=== PATIENT | female | born 1960 | race Asian ===

== ENCOUNTER 2017-01-02 14:57 | Outpatient (CLI) | payer OTHER | END 2017-01-02 14:58 | disposition home or self-care (01) | DX: G47.33 Obstructive sleep apnea (adult) (pediatric) (principal) ==

== ENCOUNTER 2017-12-17 14:03 | Outpatient (CLI) | payer OTHER | END 2017-12-17 14:04 | disposition home or self-care (01) | LOC: SC 14:03 | PROVIDERS: ATTEND Internal Medicine Pulmonary Disease | DX: G47.33 Obstructive sleep apnea (adult) (pediatric) (principal) | CPT/HCPCS: 99212; 99213 ==

== ENCOUNTER 2019-01-21 10:57 | Outpatient (CLI) | payer OTHER | END 2019-01-21 10:58 | disposition home or self-care (01) | LOC: SC 10:57 | PROVIDERS: ATTEND Nurse Practitioner Family | DX: G47.33 Obstructive sleep apnea (adult) (pediatric) (principal) | CPT/HCPCS: 99212; 99214 ==

== ENCOUNTER 2019-04-08 11:03 | Outpatient (CLI) | payer OTHER | END 2019-04-08 11:04 | disposition home or self-care (01) | LOC: SC 11:03 | PROVIDERS: ATTEND Nurse Practitioner Family | DX: G47.33 Obstructive sleep apnea (adult) (pediatric) (principal) | CPT/HCPCS: 99212; 99214 ==

== ENCOUNTER 2019-11-18 12:46 | Outpatient (CLI) | payer OTHER ==
[2019-11-18 13:38] VITALS: BP 123/72
--- NOTE | 2019-11-18 13:38 | SLEEP CARE CONSULTATION ---
Information from patient questionnaire entered by Ximena Coyne. I have reviewed and concur with the information entered by Ximena Coyne. This document represents the service I personally performed and the decisions made by me, Monica Rubi, RN, MSN, [employer] TECHNICIAN. History of Present Illness Previous diagnosis: Mild, Obstructive Sleep Apnea-Hypopnea Syndrome AHI: 7.2 Reason for follow up: six month Equipment type: CPAP Equipment obtained from: [facility] Mask style: Nasal (Dreamwear) Mask brand: Respironics Backup mask available: Yes (old mask ) Last cushion change: a month ago HPI additional information: the chinstrap use reduced mask leaks. CPAP Compliance Data - Data Reviewed with Patient Average duration of nightly device use: 6.95 Compliance rate %: 96.1 (180 days) Current pressure setting (cmH2O): 12 Humidity settin Heated hose settin Average residual AHI: 3.2 Average large leak: 3 min 55 sec Subjective Patient concerns: reports: mask leak noise (when sleeps on side), dry mouth, nose, throat (mild dry mouth intermittently ), other (mask disloding in sleep about every other day. ). denies: aerophagia, mask discomfort, air blowing in eyes, condensation in mask/hose, nasal congestion, epistaxis Observed to snore while using device: No Current pressure setting perceived as: comfortable On therapy, patient: reports: sleeping better, awakening more refreshed, being more awake and alert during the day, more rested overall. denies: drowsiness while driving Initial [place] Sleepiness Scale score: 15 Allergies and Home Medications Home medication list reviewed: Yes (stopped meloxicam and insulin reduced to morning only ) Review of Systems Review of systems same as previous: No (right total knee in May ) Physical Exam Blood Pressure: 123/72 Cuff size: wrist Heart Rate: 84 O2 Saturation: 99 Height: 4 ft 11 in Weight: 139 lb 9.6 oz Weight change since last visit: lost 6 pounds Body Mass Index: 28.2 BMI Classification: Overweight Impression and Plan 1. Obstructive Sleep Apnea-Hypopnea Syndrome, mild , with good treatment compliance and good apnea control. On CPAP therapy, the patient has better sleep quality and is more rested overall. Mask leaks predominately from when patient sleeps on their side can be reduced by using a CPAP pillow. A CPAP pillow sample was shown. This and other styles can be purchased online. I will also order a headgear with arms for her mask to reduce dislodging in sleep. Oral dryness can be reduced by adjusting humidity setting higher or heated hose lower or by adjusting both settings. Printed instructions given on how to change humidity and heated hose settings with rationale explaining why to change. Oral dryness can also be reduced by reducing mask leaks. Patient advised that chronic oral dryness can affect dental health and advised to follow up with dentist. In addition, there are oral dryness products that can be used to reduce dryness such as Biotene products, Dry mouth rinse and Xylomelts. Patient is currently using Biotene as needed. Patient's apnea severity and rationale for treatment to reduce apnea, improve sleep quality and reduce cardiovascular and cerebrovascular events was reviewed. I also reviewed the benefit of consistent device use of CPAP for hypertension, diabetes. Patient spouse is retiring and may move but patient wants to continue with follow up here if possible. * Continue CPAP pressure at 12 cmH2O * Implement methods to reduce oral dryness. * Notify me if snoring with mask or feeling that the pressure is too much or too little * Attempt to lose weight * Call this office if any problems using CPAP * Return for follow up in 1 year, or sooner if concerns arise * If moves contact this office to clarify process. Time Spent with Patient (minutes): 30 I spent 100% of this visit face to face with the patient with greater than 50% of this was spent time counseling the patient and coordination of care.
== END 2019-11-18 12:47 | disposition home or self-care (01) ==
LOC: SC 12:46
PROVIDERS: ATTEND Nurse Practitioner Family
DX: G47.33 Obstructive sleep apnea (adult) (pediatric) (principal); E66.3 Overweight; Z68.28 Body mass index [BMI] 28.0-28.9, adult
CPT/HCPCS: 99212; 99214

== ENCOUNTER 2020-08-19 14:51 | Outpatient (CLI) | payer OTHER ==
--- NOTE | 2020-08-25 09:05 | Mammography Report ---
BILATERAL DIGITAL SCREENING MAMMOGRAM 3D/2D: 08/19/2020 CLINICAL: Routine screening. Comparison is made to exams dated: 05/04/2015 mammogram - [facility], 12/01/2018 [facility], and 12/11/2017 mammogram - [facility]. The tissue of both breasts is heterogen eously dense. This may lower the sensitivity of mammography. No significant masses, calcifications, or other findings are seen in either breast. There has been no significant interval change. IMPRESSION: NEGATIVE There is no mammographic evidence of malignancy. A 1 year screening mammogram is recommended. This exam was interpreted at Station ID: [id number]. NOTE: For mammograms, a report in lay terms will be sent to the patient. Approximately 15% of breast malignancies will not be visualized mammographically. In the management of a palpable breast mass, a negative mammogram must not discourage biopsy of a clinically suspicious lesion. Electronically Signed By: Heather petersen/slim:08/24/2020 17:06:12 ACR BI-RADS Category 1: Negative 3341F PARENCHYMAL PATTERN: (D) - The breast(s) demonstrate(s) heterogeneously dense fibroglandular priyanka gonzalez. BI-RADS CATEGORY: (1) - 1 RECOMMENDATION: (ANNUAL) - Recommend routine annual screening mammography. [id number] 1 year screening LATERALITY: (B)
== END 2020-08-19 14:52 | disposition home or self-care (01) ==
LOC: DI.N 14:51
PROVIDERS: ATTEND Internal Medicine
DX: Z12.31 Encounter for screening mammogram for malignant neoplasm of breast (principal)
CPT/HCPCS: 77067

== ENCOUNTER 2020-09-23 07:00 | Outpatient (CLI) | payer OTHER | END 2020-09-23 23:59 | disposition home or self-care (01) | LOC: COV 07:00 | PROVIDERS: ATTEND Ophthalmology | DX: Z01.812 Encounter for preprocedural laboratory examination (principal); H25.812 Combined forms of age-related cataract, left eye; E11.9 Type 2 diabetes mellitus without complications; Z79.4 Long term (current) use of insulin; Z20.822 Contact with and (suspected) exposure to COVID-19 ==

== ENCOUNTER 2020-09-29 06:15 | Day surgery (SDC) | payer OTHER ==
[2020-09-29] MEDS ORDERED: LACTATED RINGERS 500 ML IV ONE ×2 (06:27→08:06)
[2020-09-29] MEDS ORDERED: PROPARACAINE 0.5% OPHTH DROPS 15 ML ONE (06:27)
[2020-09-29] MEDS ORDERED: PHENYLEPHRINE 2.5% OPHTH 2 ML DROPS ONE (06:27)
[2020-09-29] MEDS ORDERED: KETOROLAC 0.45% OPHTH DROPS ONE (06:27)
--- NOTE | 2020-09-29 07:14 | ANESTHESIA ---
Pre-Anesthesia VS, & Labs - Diagnosis L senile combined cataract - Procedure L extraction cataract w/IOL Vital Signs: Temp Pulse Resp BP Pulse Ox 36.9 C 80 16 167/81 H 98 09/29/20 06:31 09/29/20 06:31 09/29/20 06:31 09/29/20 06:31 09/29/20 06:31 Height: 4 ft 11 in Weight (kg): 62 kg Body Mass Index: 27.6 BMI Classification: Overweight - NPO >8 hours - Is Patient ?: No - Lab Results Current Lab Results: Laboratory Tests 09/29/20 06:44: POC Whole Bld Glucose 103 H Lab results reviewed: Yes Home Medications and Allergies Home Medications: Ambulatory Orders Albuterol Sulf [Ventolin Hfa Inhaler] 1 - 2 puffs INH Q4HR PRN 09/28/20 Aspirin [Aspirin EC] 81 mg PO DAILY 09/28/20 Atorvastatin Calcium [Lipitor] 80 mg PO DAILY 09/28/20 Cholecalciferol (Vitamin D3) [Vitamin D3] 25 mcg PO DAILY 09/28/20 Insulin Glargine [Lantus Solostar] 10 unit SQ DAILY 09/28/20 Loratadine [Claritin] 10 mg PO DAILY PRN 09/28/20 Telmisartan/Hydrochlorothiazid [Micardis Hct 80-25 mg Tablet] 1 each PO DAILY 09/28/20 metFORMIN [Glucophage] 1,000 mg PO BIDWM 09/28/20 Dulaglutide [Trulicity] 0.75 mg SQ ONCE 09/29/20 Albuterol Sulf [Ventolin Hfa Inhaler] 1 - 2 puffs INH Q4HR PRN 09/28/20 Aspirin [Aspirin EC] 81 mg PO DAILY 09/28/20 Atorvastatin Calcium [Lipitor] 80 mg PO DAILY 09/28/20 Cholecalciferol (Vitamin D3) [Vitamin D3] 25 mcg PO DAILY 09/28/20 Insulin Glargine [Lantus Solostar] 10 unit SQ DAILY 09/28/20 Loratadine [Claritin] 10 mg PO DAILY PRN 09/28/20 Telmisartan/Hydrochlorothiazid [Micardis Hct 80-25 mg Tablet] 1 each PO DAILY 09/28/20 metFORMIN [Glucophage] 1,000 mg PO BIDWM 09/28/20 Dulaglutide [Trulicity] 0.75 mg SQ ONCE 09/29/20 Allergies/Adverse Reactions: Allergies Allergy/AdvReac Type Severity Reaction Status Date / Time latex Allergy Itching Verified 09/28/20 14:19 meperidine [From Demerol] Allergy Anxiety Verified 09/28/20 14:19 Anes History & Medical History - Anesthetic History Anesthesia Complications: reports: No previous complications Family history of Anesthesia Complications: Denies Family history of Malignant Hyperthermia: Denies - Medical History Cardiovascular: reports: Hypertension, High cholesterol Pulmonary: reports: Asthma, Sleep apnea, CPAP use Urinary: reports: None Musculoskeletal: reports: Osteoarthritis Endocrine/Autoimmune: reports: Type 2 diabetes Psychosocial: reports: No issues indicated History of Cancer?: No - Surgical History Urologic: Bladder surgery Gynecologic: Tubal ligation Orthopedic: Knee replacement Exam General: Alert, Oriented x3, Cooperative Dental: WNL Mouth Opening: Greater than 4 Fingerbreadths Neck Mobility: Normal Mallampati classification: II Thyromental Distance: 4-6 cm Respiratory: Lungs clear, Normal breath sounds, No respiratory distress Cardiovascular: Regular rate Neurological: Normal speech Mental/Cognitive Status: Alert/Oriented X3, Normal for patient Cognitive Status: Within normal limits Plan Anesthesia Type: MAC Consent for Procedure(s) Verified and Reviewed: Yes Code Status: Attempt Resuscitation ASA classification: 2-Mild systemic disease Is this case an emergency?: No
[2020-09-29] MEDS ORDERED: MIDAZOLAM 2 MG/2 ML VIAL ONE (07:17)
[2020-09-29] MEDS ORDERED: EPINEPHrine 1 MG/ML AMP IR ONE (07:41)
[2020-09-29] MEDS ORDERED: BRIMONIDINE 0.2% OPHTH DROPS 5 ML OPTH ONE (07:41)
[2020-09-29] MEDS ORDERED: CHONDR SULF/HYALURONATE SYRINGE IO ONE (07:41)
[2020-09-29] MEDS ORDERED: TRIAMCIN/MOXIFLOX OPHTHALMIC 0.6 ML VIAL IO ONE ×2 (07:42→08:36)
[2020-09-29] MEDS ORDERED: BSS/LIDOCAINE/EPINEPHRINE 1 ML SYRINGE IO ONE (07:42)
[2020-09-29] MEDS ORDERED: TIMOLOL 0.5% OPHTH DROPS OPTH ONE (07:42)
[2020-09-29] MEDS ORDERED: PROPARACAINE 0.5% OPHTH DROPS 15 ML EACHEYE ONE (07:42)
[2020-09-29] MEDS ORDERED: VANCOMYCIN OPHTHALMI 8MG/0.8ML 8 MG/0.8 ML SYRINGE IO ONE ×2 (07:43→08:37)
[2020-09-29 08:21] VITALS: BP 132/64
[2020-09-29] MEDS ORDERED: KETOROLAC 15 MG/ML VIAL ONE (08:27)
[2020-09-29] MEDS ORDERED: EPINEPHrine 1 MG/ML AMP ONE (08:36)
[2020-09-29] MEDS ORDERED: BSS/LIDOCAINE/EPINEPHRINE 1 ML SYRINGE ONE (08:37)
[2020-09-29] MEDS ORDERED: TIMOLOL 0.5% OPHTH DROPS ONE (08:37)
[2020-09-29] MEDS ORDERED: BRIMONIDINE 0.2% OPHTH DROPS 5 ML ONE (08:37)
--- NOTE | 2020-09-29 09:24 | ANESTHESIA POST OP EVALUATION ---
Anesthesia Post Eval - Post Anesthesia Eval Vitals: Last Vital Signs Temp 36.3 C L 09/29/20 08:20 Pulse 70 09/29/20 08:20 Resp 22 09/29/20 08:20 BP 132/64 H 09/29/20 08:20 Pulse Ox 96 09/29/20 08:20 CV Function Including HR & BP: positive: Stable Pain Control: positive: Satisfactory Nausea & Vomiting: positive: Negative Mental Status: positive: Baseline Respiratory Status: Airway Patent Hydration Status: Satisfactory Anesthesia Complications: positive: None
--- NOTE | 2020-09-29 10:05 | OPERATIVE REPORT ---
DATE OF SERVICE: 09/29/2020 Physician: Florentino Kennedy MD PREOPERATIVE DIAGNOSIS: Visually significant cataract, left eye. This was her first cataract surger y. POSTOPERATIVE DIAGNOSIS: Visually significant cataract, left eye. This was her first cataract surge ry. PROCEDURE: Phacoemulsification with posterior chamber intraocular lens implant, left eye. SURGEON: Florentino Kennedy MD ANESTHESIA: Monitored anesthesia care. COMPLICATIONS: None. OPERATIVE INDICATIONS: This is a 60-year-old woman with progressive vision loss in the left eye due to a 2-3+ nuclear sclerotic, 2+ cortical, and 3+ posterior subcapsular cataract. Best corrected visu al acuity was 20/100, with glare to hand motion vision in the left eye. Indications for surgery are overall decrease in vision, difficulty seeing words on a computer screen, difficulty reading, difficu lty seeing words, closed caption or game scores on TV, difficulty seeing street signs, difficulty dri ving in low light or at night, difficulty driving at night because of headlights from other vehicles, difficulty with glare or bright lights in any situation, difficulty tracking a golf ball and decreas ed acuity with firearms. She was consented at length concerning risks and benefits of cataract surge ry, after which she expressed a desire to proceed with surgery. OPERATIVE PROCEDURE: The patient was taken into OR #3 and placed under monitored anesthesia care. S urgical timeout was conducted confirming correct patient, correct procedure, and correct surgical sit e. She was given topical anesthesia, and prepped and draped in the usual sterile fashion. The eye was entered at the 6 and 3 o'clock positions. Intracameral Shugarcaine was injected into the anterior chamber, followed by Viscoat. A continuous-tear curvilinear capsulorrhexis was performed. Nucleus was hydrodissected and phacoemulsified. The cortex was evacuated using automated infusion a nd aspiration. Provisc was injected in the capsular bag, and a 19.5 diopter intraocular lens was ins erted into the bag. Infusion and aspiration were used to evacuate the viscoelastic materials. The e ye was inflated to physiologic pressure using balanced salt solution and found to be watertight. Sean roximately 0.25 mL of a mixture of triamcinolone and moxifloxacin was injected transsclerally into th e vitreous in the inferotemporal quadrant. An additional 0.55 mL of a mixture of triamcinolone, moxi floxacin, and vancomycin was injected subconjunctivally in the superior quadrant for infection and in flammation prophylaxis. Wound integrity was checked with Weck-Rachel sponges. Patient was taken from the operating room in good condition and given postoperative instructions. TD: 09/29/2020 08:38
== END 2020-09-29 06:16 | disposition home or self-care (01) ==
LOC: SDS 06:15
PROVIDERS: ATTEND Ophthalmology
DX: E11.36 Type 2 diabetes mellitus with diabetic cataract (principal); H25.812 Combined forms of age-related cataract, left eye; I10 Essential (primary) hypertension; J45.909 Unspecified asthma, uncomplicated; G47.30 Sleep apnea, unspecified; E78.00 Pure hypercholesterolemia, unspecified; E66.3 Overweight; Z68.27 Body mass index [BMI] 27.0-27.9, adult; M19.90 Unspecified osteoarthritis, unspecified site; Z79.51 Long term (current) use of inhaled steroids; Z79.82 Long term (current) use of aspirin; Z79.4 Long term (current) use of insulin; Z79.899 Other long term (current) drug therapy
CPT/HCPCS: 66984; A9270; J3490; J7120; V2632

== ENCOUNTER 2021-02-03 10:58 | Outpatient (CLI) | payer OTHER ==
--- NOTE | 2021-02-03 11:38 | SLEEP CARE CONSULTATION ---
Information from patient questionnaire entered by Ximena Coyne. I have reviewed and concur with the information entered by Ximena Coyne. This document represents the service I personally performed and the decisions made by , Corazon Dimas ARNP. History of Present Illness Service Date and Time: 02/03/2021 1058 Previous diagnosis: Mild, Obstructive Sleep Apnea-Hypopnea Syndrome AHI: 7.2 (in 2014) Reason for follow up: annual (last seen 11/2019) Equipment type: CPAP Equipment obtained from: [facility] (getting masks but still needs a headgear) Mask style: Nasal Mask brand: Respironics (Dreamwear) Backup mask available: Yes (old mask) Last cushion change: 3 weeks Prior sleep studies: Yes Year and Where: 2014 - [facility] Sleep Type of Sleep Study: Polysomnography HPI additional information: SIN RUEDA was diagnosed to have mild, AHI 7.2, obstructive sleep apnea- hypopnea syndrome and returned today for CPAP therapy annual follow-up. CPAP Compliance Data - Data Reviewed with Patient Average duration of nightly device use: 7 hr 1 min Compliance rate %: 90 (180 days) Current pressure setting (cmH2O): 12 Humidity settin Heated hose settin Average residual AHI: 3.5 Average large leak: 8 min 47 sec Subjective Missed days of use due to: reports: other (work) Patient concerns: reports: mask leak noise, dry mouth, nose, throat, other (sometimes feels like she is choking on her saliva, once or twice). denies: aerophagia, mask discomfort, air blowing in eyes, condensation in mask/hose, nasal congestion, epistaxis Observed to snore while using device: No Current pressure setting perceived as: comfortable On therapy, patient: reports: sleeping better, awakening more refreshed, being more awake and alert during the day, more rested overall. denies: drowsiness while driving Initial [place] Sleepiness Scale score: 15 (in 2014) Current [place] Sleepiness Scale score: 13 Allergies and Home Medications Home medication list reviewed: Yes (no new meds) Review of Systems Review of systems same as previous: No (left eye cataract surgery early in year) Physical Exam Heart Rate: 66 O2 Saturation: 95 Height: 4 ft 11 in Weight: 136 lb Weight change since last visit: 3 lb loss Body Mass Index: 27.4 BMI Classification: Overweight Impression and Plan 1. Obstructive Sleep Apnea-Hypopnea Syndrome, mild, with good treatment compliance and good apnea control. On CPAP therapy, the patient has better sleep quality and is more rested overall. She has lost 3 pounds since last visit. She has been having some mouth dryness regularly. Oral dryness can be reduced by adjusting humidity setting higher or heated hose lower or by adjusting both settings. Verbal instructions given on how to change humidity and heated hose settings with rationale explaining why to change. She voiced understanding. She has not been able to get a new headgear and she was encouraged to reach out to [facility] and ask when she is eligible to get this replaced. She again voiced understanding. Patient's apnea severity and rationale for treatment to reduce apnea, improve sleep quality and reduce cardiovascular and cerebrovascular events was reviewed. I also reviewed the benefit of consistent device use of CPAP for hypertension, and diabetes. * Continue CPAP pressure at 12 cmH2O * Notify me if snoring with mask or feeling that the pressure is too much or too little * Continue to try to lose weight * Call this office if any problems using CPAP * Return for follow up in 1 year, or sooner if concerns arise Counseling Topics: Spare mask, Weight loss health impact Visit Type: In Office Time Spent with Patient (minutes): 20 Provider Statement: I spent 100% of the Face to Face Visit with the patient with greater than 50% spent counseling the patient and coordination of care.
== END 2021-02-03 10:59 | disposition home or self-care (01) ==
LOC: SC 10:58
PROVIDERS: ATTEND Nurse Practitioner Family
DX: G47.33 Obstructive sleep apnea (adult) (pediatric) (principal); E66.3 Overweight; Z68.27 Body mass index [BMI] 27.0-27.9, adult
CPT/HCPCS: 99212

== ENCOUNTER 2022-03-12 10:49 | Outpatient (CLI) | payer OTHER ==
--- NOTE | 2022-03-13 09:17 | Mammography Report ---
BILATERAL DIGITAL SCREENING MAMMOGRAM 3D/2D: 03/12/2022 CLINICAL: Routine screening. Comparison is made to exams dated: 08/19/2020 mammogram - [facility], 12/01/2018 [facility] mogram, 12/11/2017 mammogram, 08/21/2016 mammogram - [facility], 05/04/2015 mammogram - [facility], and 05/04/2015 mammogram - [facility]. The tissue of both breasts is heterogeneously dense. This may lower the sensitivity of mammography. No significant masses, calcifications, or other findings are seen in either breast. There has been no significant interval change. IMPRESSION: NEGATIVE There is no mammographic evidence of malignancy. A 1 year screening mammogram is recommended. Based on the Tyrer Cuzick model (a risk assessment model) the patients lifetime risk is 12.5% and he r 10 year risk is 5.5%. According to the ACR, ACS, and NCCN guidelines, an annual breast MRI exam kasia ng with mammogram is recommended if the patients lifetime risk is 20% or greater. This exam was interpreted at Station ID: [id number]. NOTE: For mammograms, a report in lay terms will be sent to the patient. Approximately 15% of breast malignancies will not be visualized mammographically. In the management of a palpable breast mass, a negative mammogram must not discourage biopsy of a clinically suspicious lesion. Electronically Signed By: Abdiel Murillo M.D., jr/slim:03/12/2022 12:28:24 ACR BI-RADS Category 1: Negative 3341F PARENCHYMAL PATTERN: (D) - The breast(s) demonstrate(s) heterogeneously dense fibroglandular parcassandray ma. BI-RADS CATEGORY: (1) - 1 RECOMMENDATION: (ANNUAL) - Recommend routine annual screening mammography. [id number] 1 year screening LATERALITY: (B)
== END 2022-03-12 10:50 | disposition home or self-care (01) ==
LOC: DI.N 10:49
DX: Z12.31 Encounter for screening mammogram for malignant neoplasm of breast (principal)

== ENCOUNTER 2022-05-23 11:30 | Outpatient (CLI) | payer OTHER ==
[2022-05-23 12:11] VITALS: BP 138/80
--- NOTE | 2022-05-23 12:11 | SLEEP CARE CONSULTATION ---
Information from patient questionnaire entered by Isela Garcia. I have reviewed and concur with the information entered by Isela Garcia. This document represents the service I personally performed and the decisions made by , Corazon Dimas ARNP. History of Present Illness Service Date and Time: 05/23/2022 1130 Previous diagnosis: Mild, Obstructive Sleep Apnea-Hypopnea Syndrome AHI: 7.2 (in 2014) Reason for follow up: annual (ANNUAL, LAST SEEN 02/03, [facility] ) Equipment type: CPAP Equipment obtained from: Other ([facility]; not getting right supplies sometimes; billing issues) Mask style: Nasal Mask brand: Respironics Backup mask available: Yes (old mask) Prior sleep studies: Yes Year and Where: 2014 - [facility] Sleep Type of Sleep Study: Polysomnography HPI additional information: SIN RUEDA was diagnosed to have mild, AHI 7.2, obstructive sleep apnea- hypopnea syndrome and returned today for CPAP therapy annual follow-up. Sleep Study - Results Type of Sleep Study: Polysomnography Prior sleep studies: Yes Year and Where: 2014 [facility] Sleep CPAP Compliance Data - Data Reviewed with Patient Average duration of nightly device use: 6 hours, 30 minutes Compliance rate %: 89 (11/24/2021-05/22/2022; 175/180 days used) Current pressure setting (cmH2O): 12 Average residual AHI: 2.1 Subjective Patient concerns: reports: dry mouth, nose, throat. denies: aerophagia, mask discomfort, air blowing in eyes, mask leak noise, condensation in mask/hose, nasal congestion, epistaxis, other Observed to snore while using device: No Current pressure setting perceived as: comfortable On therapy, patient: reports: sleeping better, awakening more refreshed, being more awake and alert during the day, more rested overall. denies: drowsiness while driving Initial [place] Sleepiness Scale score: 15 (in 2014) Current [place] Sleepiness Scale score: 10 Allergies and Home Medications Drug allergies reviewed: Yes (latex; meperidine) Home medication list reviewed: Yes (HCTZ 12.5 mg; Telmasartan 20 mg tab) Allergy and home medication list: Allergies latex Allergy (Verified 09/28/20 14:19) Itching meperidine [From Demerol] Allergy (Verified 09/28/20 14:19) Anxiety Review of Systems Review of systems same as previous: Yes (no changes) Physical Exam Vital signs obtained and entered by: [facility] [place] Blood Pressure: 138/80 (LEFT ARM ) Cuff size: regular Heart Rate: 88 O2 Saturation: 99 Height: 4 ft 11 in Weight: 127 lb 3.2 oz Body Mass Index: 25.7 BMI Classification: Overweight Impression and Plan 1. Obstructive Sleep Apnea-Hypopnea Syndrome, mild, with good treatment compliance and good apnea control. On CPAP therapy, the patient has better sleep quality and is more rested overall. Patient gets some dry mouth and she uses Biotene as needed. Patient denies problems with nasal congestion, epistaxis, skin irritation or aerophagia. Patient states she sometimes does not get the right supplies that she orders. She is not sure she wants to stay with the DME she has but think she will contact them to see about straightening out the supply problem. I encouraged her to do so. Patient's apnea severity and rationale for treatment to reduce apnea, improve sleep quality and reduce cardiovascular and cerebrovascular events was reviewed. I also reviewed the benefit of consistent device use of CPAP for hypertension and diabetes. Patient is overweight with a BMI of 25.7. I advised her to try to lose weight. * Continue CPAP pressure at 12 cmH2O * Update supplies * Notify me if snoring with mask or feeling that the pressure is too much or too little * Attempt to lose weight * Call this office if any problems using CPAP * Return for follow up in 1 year, or sooner if concerns arise Counseling Topics: Spare mask, Weight loss health impact Visit Type: In Office Time Spent with Patient (minutes): 21 Provider Statement: I spent 100% of the Face to Face Visit with the patient with greater than 50% spent counseling the patient and coordination of care.
== END 2022-05-23 11:31 | disposition home or self-care (01) ==
LOC: SC 11:30
PROVIDERS: ATTEND Nurse Practitioner Family
DX: G47.33 Obstructive sleep apnea (adult) (pediatric) (principal); E66.3 Overweight; Z68.25 Body mass index [BMI] 25.0-25.9, adult
CPT/HCPCS: 99212; 99213

== ENCOUNTER 2023-03-14 07:28 | Day surgery (SDC) | payer OTHER ==
[~2023-03-14 07:28] MED LIST: CYCLOPENTOLATE 1% OPHTH DROPS 2 ML ONE; KETOROLAC 0.45% OPHTH DROPS ONE; PHENYLEPHRINE 2.5% OPHTH 2 ML DROPS ONE; PROPARACAINE 0.5% OPHTH DROPS 15 ML ONE
[2023-03-14] MEDS ORDERED: LACTATED RINGERS 1,000 ML IV ONE (07:32)
[2023-03-14] MEDS ORDERED: MIDAZOLAM 2 MG/2 ML VIAL ONE (08:24)
--- NOTE | 2023-03-14 08:37 | ANESTHESIA ---
Pre-Anesthesia VS, & Labs - Diagnosis right cataract - Procedure right cataract extraction with IOL Vital Signs: Temp Pulse Resp BP Pulse Ox O2 Flow Rate 36.5 C 86 16 158/74 H 100 0 03/14/23 07:42 03/14/23 07:42 03/14/23 07:42 03/14/23 07:42 03/14/23 07:42 03/14/23 07:42 Height: 4 ft 11 in Weight (kg): 57 kg Body Mass Index: 25.3 BMI Classification: Overweight - NPO >8 hours - Is Patient ?: No - Lab Results Current Lab Results: Laboratory Tests 03/14/23 08:00: POC Whole Bld Glucose 115 H Home Medications and Allergies Home Medications: Ambulatory Orders Cholecalciferol (Vitamin D3) [Vitamin D3] 1,250 mcg PO DAILY 03/13/23 Mecobalamin [B12 Active] 1,000 mcg PO DAILY 03/13/23 Metformin HCl [Metformin ER Gastric] 1,000 mg PO BIDAC 03/13/23 Albuterol Sulf [Ventolin Hfa Inhaler] 1 - 2 puffs INH Q4HR PRN 09/28/20 Aspirin [Aspirin EC] 81 mg PO DAILY 09/28/20 Atorvastatin Calcium [Lipitor] 80 mg PO DAILY 09/28/20 Loratadine [Claritin] 10 mg PO DAILY PRN 09/28/20 Telmisartan/Hydrochlorothiazid [Micardis Hct 80-25 mg Tablet] 1 each PO DAILY 09/28/20 Dulaglutide [Trulicity] 0.75 mg SQ ONCE 09/29/20 Cholecalciferol (Vitamin D3) [Vitamin D3] 1,250 mcg PO DAILY 03/13/23 Mecobalamin [B12 Active] 1,000 mcg PO DAILY 03/13/23 Metformin HCl [Metformin ER Gastric] 1,000 mg PO BIDAC 03/13/23 Allergies/Adverse Reactions: Allergies Allergy/AdvReac Type Severity Reaction Status Date / Time latex Allergy Itching Verified 03/13/23 12:12 meperidine [From Demerol] Allergy Anxiety Verified 03/13/23 12:12 Anes History & Medical History - Anesthetic History Anesthesia Complications: reports: No previous complications - Medical History Cardiovascular: reports: Hypertension, High cholesterol Pulmonary: reports: Asthma, Sleep apnea Gastrointestinal: reports: None Urinary: reports: None Musculoskeletal: reports: Osteoarthritis Endocrine/Autoimmune: reports: Type 2 diabetes Skin: reports: None History of Cancer?: No - Surgical History Eyes Ears Nose Throat (EENT): reports: Cataracts Orthopedic: reports: Knee replacement Plan Anesthesia Type: MAC Consent for Procedure(s) Verified and Reviewed: Yes Code Status: Attempt Resuscitation ASA classification: 2-Mild systemic disease Is this case an emergency?: No
[2023-03-14] MEDS ORDERED: TRIAMCIN/MOXIFLOX OPHTHALMIC 0.6 ML VIAL IO ONE ×2 (08:38→08:56)
[2023-03-14] MEDS ORDERED: EPINEPHrine 1 MG/ML AMP ONE (08:38)
[2023-03-14] MEDS ORDERED: BRIMONIDINE 0.2% OPHTH DROPS 5 ML ONE (08:39)
[2023-03-14] MEDS ORDERED: VANCOMYCIN OPHTH (TOPICAL) 10 MG/ML SYRINGE ONE (08:39)
[2023-03-14] MEDS ORDERED: TIMOLOL 0.5% OPHTH DROPS ONE (08:39)
[2023-03-14] MEDS ORDERED: BSS/LIDOCAINE/EPINEPHRINE 1 ML VIAL ONE (08:39)
[2023-03-14] MEDS ORDERED: EPINEPHrine 1 MG/ML AMP IR ONE (08:54)
[2023-03-14] MEDS ORDERED: BRIMONIDINE 0.2% OPHTH DROPS 5 ML OPTH ONE (08:54)
[2023-03-14] MEDS ORDERED: TIMOLOL 0.5% OPHTH DROPS OPTH ONE (08:55)
[2023-03-14] MEDS ORDERED: BSS/LIDOCAINE/EPINEPHRINE 1 ML SYRINGE IO ONE (08:55)
[2023-03-14] MEDS ORDERED: PROPARACAINE 0.5% OPHTH DROPS 15 ML EACHEYE ONE (08:56)
[2023-03-14] MEDS ORDERED: VANCOMYCIN OPHTH (TOPICAL) 10 MG/ML SYRINGE TOP ONE (08:56)
[2023-03-14] MEDS ORDERED: LACTATED RINGERS IV ONE (09:06)
--- NOTE | 2023-03-14 09:16 | OPERATIVE REPORT ---
Operative Report - Other Other Information/Narrative: Date of Surgery: 03/14/23 Preop Dx: Visually significant cataract right eye. Cataract surgery was performed in the left eye on . Postop Dx: Same Procedure: Phacoemulsification with posterior chamber intraocular lens implant right eye Surgeon: Dr. Florentino Kennedy Anesthesia: Monitored anesthesia care Complications: None Operative Indications: This is a 63-year-old F with progressive vision loss in the right eye due to 2+ nuclear sclerotic, 2+ cortical, 2+ posterior subcapsular, and vacuolar cataract. Best corrected visual acuity was 20/70 with glare to 20/250 vision in the right eye. Indications for surgery were: - Overall decrease in vision - Difficulty seeing words on a computer screen - Difficulty reading - Difficulty seeing words, closed captions, or game scores on TV - Difficulty seeing street signs - Difficulty driving in low light or at night - Difficulty driving at night because of headlights from other vehicles - Difficulty with glare or bright lights in any situation - Difficulty tracking a golf ball The patient was consented at length concerning the risks and benefits of cataract surgery after which the patient expressed a desire to proceed with surgery. Operative Procedure: The patient was taken into OR#3 and placed under monitored anesthesia care. A surgical time-out was conducted confirming correct patient, correct procedure, and correct surgical site. The patient was given topical anesthesia and then prepped and draped in the usual sterile fashion. The eye was entered at the 6 and 3 oclock positions. Intracameral Shugarcaine was injected into the anterior chamber followed by a dispersive viscoelastic. A continuous-tear curvilinear capsulorhexis was performed. The nucleus was hydrodissected and phacoemulsified. The cortex was evacuated using automated infusion and aspiration. A cohesive viscoelastic was injected into the capsular bag and a 19.5 diopter intraocular lens was inserted into the bag. Infusion and aspiration were used to evacuate the viscoelastic materials from the eye. The wounds were hydrated and the eye inflated to physiologic pressure using balanced salt solution. Approximately 0.25ml of a mixture of triamcinolone and moxifloxacin was injected trans-sclerally into the vitreous in the inferotemporal quadrant using a 30 gauge cannula. An additional 0.25ml of a mixture of triamcinolone and moxifloxacin was injected subconjunctivally in the superior quadrant for infection and inflammation prophylaxis. Wound integrity was checked with Weck-Rachel sponges. The patient was taken from the operating room in good condition and given post-op instructions.
--- NOTE | 2023-03-14 09:30 | ANESTHESIA POST OP EVALUATION ---
Anesthesia Post Eval - Post Anesthesia Eval Vitals: Last Vital Signs Temp 35.7 C L 03/14/23 09:06 Pulse 78 03/14/23 09:06 Resp 14 03/14/23 09:06 BP 135/75 H 03/14/23 09:06 Pulse Ox 98 03/14/23 09:06 O2 Flow Rate 0 03/14/23 07:42 CV Function Including HR & BP: Stable Pain Control: Satisfactory Nausea & Vomiting: Negative Mental Status: Baseline Respiratory Status: Airway Patent Hydration Status: Satisfactory Anesthesia Complications: None
[2023-03-14 09:55] VITALS: BP 134/80
== END 2023-03-14 07:29 | disposition home or self-care (01) ==
LOC: SDS 07:28
PROVIDERS: ATTEND Ophthalmology
DX: E11.36 Type 2 diabetes mellitus with diabetic cataract (principal); H25.811 Combined forms of age-related cataract, right eye; I10 Essential (primary) hypertension; J45.909 Unspecified asthma, uncomplicated; G47.30 Sleep apnea, unspecified; Z79.84 Long term (current) use of oral hypoglycemic drugs
CPT/HCPCS: 66984; A9270; J3490; J7120

== ENCOUNTER 2023-10-01 13:17 | Outpatient (CLI) | payer OTHER ==
--- NOTE | 2023-10-01 14:06 | Sleep Patient Instructions ---
Sleep Center Visit Summary - Patient Visit Information Reason for Visit: Annual visit for PAP therapy - Patient Instructions Additional Instructions: You will continue with CPAP therapy with pressure set at 12 cmH2O. A supply prescription will be updated with your DME. We encourage you to continue to try to lose weight. Please follow up with the sleep care office in 1 year. - Clinic Information Contact: [facility] [address] [place] [address] [email or web address] T: [phone]
--- NOTE | 2023-10-01 14:09 | SLEEP CARE CONSULTATION ---
Information from patient questionnaire entered by Aure Pitt. I have reviewed and concur with the information entered by Aure Pitt. This document represents the service I personally performed and the decisions made by , Corazon Dimas ARNP. History of Present Illness Service Date and Time: 10/01/2023 1317 Previous diagnosis: Mild, Obstructive Sleep Apnea-Hypopnea Syndrome AHI: 7.2 (in 2014) Reason for follow up: annual (LAST SEEN 05/2022) Equipment type: CPAP (RESMED Airsense 11, s/u 06/2021) Equipment obtained from: Other ([facility]; getting supplies) Mask style: Nasal Mask brand: Resmed Backup mask available: Yes Last cushion change: weekly Prior sleep studies: Yes Year and Where: 2014 - [facility] Type of Sleep Study: Polysomnography HPI additional information: SIN RUEDA was diagnosed to have mild, AHI 7.2, obstructive sleep apnea- hypopnea syndrome and returned today for CPAP therapy annual follow-up. Sleep Study - Results Type of Sleep Study: Polysomnography [facility]: Yes [facility] Compliance Data - Data Reviewed with Patient Average duration of nightly device use: 6 HRS 12 MINS Compliance rate %: 86 (09/27/22-09/26/23; 346/365 days used) Current pressure setting (cmH2O): 12 Average residual AHI: 2.1 Central apnea: 1.2 Obstructive apnea: 0.5 Average large leak: 5.7 L/min Subjective Missed days of use due to: reports: travel Patient concerns: reports: mask discomfort (occasional dislodgement), condensation in mask/hose (in hose), dry mouth, nose, throat (dry throat, occasional). denies: aerophagia, air blowing in eyes, mask leak noise, nasal congestion, epistaxis Observed to snore while using device: No Current pressure setting perceived as: comfortable On therapy, patient: reports: sleeping better, awakening more refreshed, being more awake and alert during the day, more rested overall. denies: drowsiness while driving Initial [place] Sleepiness Scale score: 15 (in 2014) Current [place] Sleepiness Scale score: 8 (10/01/23) Allergies and Home Medications Known drug allergies: Yes (as listed) Drug allergies reviewed: Yes Home medication list reviewed: Yes (no changes) Allergy and home medication list: Allergies latex Allergy (Verified 09/27/23 11:39) Itching meperidine [From Demerol] Allergy (Verified 09/27/23 11:39) Anxiety Review of Systems Review of systems same as previous: Yes (NO CHANGE) Physical Exam Vital signs obtained and entered by: AURE Ramirez MA Blood Pressure: 125/66 (LEFT ARM) Cuff size: regular Heart Rate: 76 O2 Saturation: 98 Height: 4 ft 11 in Weight: 125 lb 3.2 oz Body Mass Index: 25.2 BMI Classification: Overweight Impression and Plan 1. Obstructive Sleep Apnea-Hypopnea Syndrome, mild, with good treatment compliance and good apnea control. On CPAP therapy, the patient has better sleep quality and is more rested overall. Patient has significant improvement of their sleep apnea and is satisfied with current CPAP therapy. Patient's apnea severity and rationale for treatment to reduce apnea, improve sleep quality and reduce cardiovascular and cerebrovascular events was reviewed. I also reviewed the benefit of consistent device use of CPAP for hypertension and diabetes. * Continue CPAP pressure at 12 cmH2O * Update supply prescription * Notify me if snoring with mask or feeling that the pressure is too much or too little * Maintain healthy weight * Call this office if any problems using CPAP * Return for follow up in 12 months, or sooner if concerns arise Counseling Topics: Spare mask, Weight loss health impact Prescriptions: Device supplies Follow up with Sleep Care in: 1 year Visit Type: In Office Time Spent with Patient (minutes): 20 Provider Statement: I spent 100% of the Face to Face Visit with the patient with greater than 50% spent counseling the patient and coordination of care.
[2023-10-01 14:13] VITALS: BP 125/66; O2SAT 98
== END 2023-10-01 13:18 | disposition home or self-care (01) ==
LOC: SC 13:17
PROVIDERS: ATTEND Nurse Practitioner Family
DX: G47.33 Obstructive sleep apnea (adult) (pediatric) (principal)
CPT/HCPCS: 99212; 99213

== ENCOUNTER 2023-10-10 18:21 | Emergency (ER) | payer OTHER ==
--- NOTE | 2023-10-10 19:17 | ED Physician Documentation ---
PD HPI HEAD INJURY - Stated complaint Stated Complaint: FELL/HIT HEAD - Chief complaint Chief Complaint: Trauma Hd/Nk - History obtained from History obtained from: Patient - History of Present Illness Mechanism of head injury: Fell Where head injury occurred: Work Timing - onset: Today Pain level max: 4 Pain level now: 2 Location of injury: Back Quality of pain: Pain, Aching, Dull Associated symptoms: LOC (unsure), AMS ("dazed"). No: Nausea / vomiting, Neck pain, Paresthesias, Seizures, Ear drainage, Nasal drainage Symptoms improve with: Rest Symptoms worsen with: Movement Contributing factors: No: Anticoagulated, Intoxicated Similar symptoms before: Has not had sx before - Additional information Additional information: Patient works as a [employer]. 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 She is unsure if she lost consciousness or not but states that she was "dazed". Has a mild headache now. Not on blood thinners. No neck or back pain. No numbness or tingling. No vision changes. Nothing seems to make it better or worse. Review of Systems Constitutional: denies: Fever, Chills Respiratory: denies: Cough GI: denies: Vomiting, Diarrhea Skin: denies: Rash Musculoskeletal: denies: Neck pain, Back pain Neurologic: denies: Headache PD PAST MEDICAL HISTORY - Past Medical History Cardiovascular: Hypertension, High cholesterol Respiratory: Asthma, Sleep apnea Endocrine/Autoimmune: Type 2 diabetes GI: None : None HEENT: None Psych: None Musculoskeletal: Osteoarthritis Derm: None - Past Surgical History Past Surgical History: Yes Ortho: Knee replacement HEENT: Cataracts - Present Medications Home Medications: Ambulatory Orders Medication Instructions Recorded Confirmed Albuterol Sulf [Ventolin Hfa 1 - 2 puffs INH Q4HR PRN 09/28/20 10/10/23 Inhaler] Aspirin [Aspirin EC] 81 mg PO DAILY 09/28/20 10/10/23 Atorvastatin Calcium [Lipitor] 80 mg PO DAILY 09/28/20 10/10/23 Loratadine [Claritin] 10 mg PO DAILY PRN 09/28/20 10/10/23 Telmisartan/Hydrochlorothiazid 1 each PO DAILY 09/28/20 10/10/23 [Micardis Hct 80-25 mg Tablet] Dulaglutide [Trulicity] 0.75 mg SQ ONCE 09/29/20 10/10/23 Cholecalciferol (Vitamin D3) 1,250 mcg PO DAILY 03/13/23 10/10/23 [Vitamin D3] Mecobalamin [B12 Active] 1,000 mcg PO DAILY 03/13/23 10/10/23 Metformin HCl [Metformin ER 1,000 mg PO BIDAC 03/13/23 10/10/23 Gastric] - Allergies Allergies/Adverse Reactions: Allergies Allergy/AdvReac Type Severity Reaction Status Date / Time latex Allergy Itching Verified 10/10/23 18:43 meperidine [From Demerol] Allergy Anxiety Verified 10/10/23 18:43 - Social History Does the pt smoke?: No Smoking Status: Never smoker PD ED PE NORMAL - Vitals Vital signs reviewed: Yes - General General: Alert and oriented X 3, No acute distress, Well developed/nourished - HEENT HEENT: Atraumatic, PERRL, EOMI, Ears normal, Moist mucous membranes, Other (No scalp hematomas. No palpable skull fractures.) - Neck Neck: Supple, no meningeal sign, No bony TTP - Cardiac Cardiac: RRR, Strong equal pulses - Respiratory Respiratory: No respiratory distress, Clear bilaterally - Abdomen Abdomen: Soft, Non tender, Non distended - Derm Derm: Warm and dry - Extremities Extremities: Normal ROM s pain - Neuro Neuro: Alert and oriented X 3, psychologist counseling 2-12 intact, No motor deficit, No sensory deficit, Normal speech Eye Opening: Spontaneous Motor: Obeys Commands Verbal: Oriented GCS Score: 15 - Psych Psych: Normal mood, Normal affect Results - Vitals Vitals: Vital Signs - 24 hr 10/10/23 10/10/23 18:38 19:47 Temperature 36.2 C L Heart Rate 79 81 Respiratory 18 18 Rate Blood Pressure 169/76 H 127/64 O2 Saturation 99 100 Oxygen O2 Source Room air - Rads (name of study) head CT Relevant Findings:: Final report received, See rad report PD Medical Decision Making - ED course Complexity details: reviewed results, re-evaluated patient, considered differential, d/w patient ED course: No acute findings on head CT. No scalp hematomas or palpable skull fractures. GCS 15 here. Head injury instructions given at bedside. No neck pain. No neck tenderness. No step-off or deformity. No neurological deficits. Not on blood thinners. L&I paperwork filled out. Patient counseled regarding signs and symptoms for which I believe and urgent re-evaluation would be necessary. Patient with good understanding of and agreement to plan and is comfortable going home at this time This document was made in part using voice recognition software. While efforts are made to proofread this document, sound alike and grammatical errors may occur. Departure - Departure Disposition: 01 Home, Self Care Clinical Impression: Closed head injury Qualifiers: Encounter type: initial encounter Qualified Code(s): S09.90XA - Unspecified injury of head, initial encounter Condition: Good Instructions: ED Head Injury Closed Follow-Up: your,doctor in 1 week [Other] Comments: Your head CT does not show any acute abnormalities today. Please follow-up with your doctor as needed for any further care. You may return to work tonight. Forms: PCP List Discharge Date/Time: 10/10/23 19:47
--- NOTE | 2023-10-10 19:37 | CT Report ---
PROCEDURE: Head WO INDICATIONS: fall, head injury TECHNIQUE: Noncontrast 4.5 mm thick angled axial sections acquired from the foramen magnum to the vertex. For r adiation dose reduction, the following was used: automated exposure control, adjustment of mA and/or kV according to patient size. COMPARISON: None. FINDINGS: Image quality: Excellent. CSF spaces: Basal cisterns are patent. No extra-axial fluid collections. Ventricles are normal in size and shape. Brain: No midline shift. No intracranial masses or hemorrhage. Velazquez-white matter interface is norm al. Skull and face: Calvarium and visualized facial bones are intact, without suspicious lesions. Sinuses: Visualized sinuses and mastoids are clear. IMPRESSION: No acute intracranial pathology. Reviewed by: Jim Lorenzana MD on 10/10/2023 7:35 PM PST Approved by: Jim Lorenzana MD on 10/10/2023 7:35 PM [facility] Station ID: [id number]
[2023-10-10 19:48] VITALS: BP 127/64; O2SAT 100
== END 2023-10-10 19:47 | disposition home or self-care (01) ==
LOC: ED 18:21
DX: S09.90XA Unspecified injury of head, initial encounter (principal); W18.30XA Fall on same level, unspecified, initial encounter; Y99.0 Civilian activity done for income or pay; I10 Essential (primary) hypertension; E78.00 Pure hypercholesterolemia, unspecified; E11.9 Type 2 diabetes mellitus without complications; Z79.899 Other long term (current) drug therapy; Z79.82 Long term (current) use of aspirin; Z91.040 Latex allergy status
CPT/HCPCS: 1040M; 70450; 99282; 99284